=== PATIENT | male | born 1945 | race Hispanic/Latino ===

== ENCOUNTER 2020-02-21 07:15 | Day surgery (SDC) | payer MEDICARE ==
[~2020-02-21 07:15] MED LIST: BUPIVACAINE 0.5% 30 ML VIAL INJ ONE
[2020-02-21] MEDS ORDERED: LISINOPRIL 10 MG TAB PO ONE (08:55)
[2020-02-21] MEDS ORDERED: LISINOPRIL 10 MG TAB ONE (08:56)
[2020-02-21] MEDS ORDERED: CARVEDILOL 3.125 MG TAB ONE (09:03)
[2020-02-21] MEDS ORDERED: cloNIDine HCL 0.1 MG TAB ONE (09:04)
[2020-02-21] MEDS ORDERED: BUPIVACAINE 0.5% 30 ML VIAL INJ ONE (09:18)
--- NOTE | 2020-02-21 10:57 | OP ---
DATE OF PROCEDURE: 02/21/20 PREOPERATIVE DIAGNOSIS: 1. Osteomyelitis, left index finger. POSTOPERATIVE DIAGNOSIS: 1. Osteomyelitis, left index finger. PROCEDURE: 1. Debridement of skin and subcutaneous tissue, dorsum, left index finger at the nailbed. 2. Debridement, excision of distal phalanx on the left index finger. SURGEON: Dhaval Franks MD. ANESTHESIA: Local block and nerve block of the left index finger. PROCEDURE: With 0.5% Marcaine, the nerve block was performed. Once adequate anesthesia was obtained, I debrided the eschar over the nailbed. The nailbed was intact, so we did not remove the nail at this point. The patient was counseled that he could loose the nail if we had chronic non-healing wound, potentially even end up doing a distal amputation. At this point, I made an incision lateral on the finger, went down and identified the bone, dissected around it and with a rongeur, excised the distal bone. It was soft and mushy, consistent with infection. During this manipulation, my lateral incision tore across the base of the nail, it was just no tissue there essentially. Once I completed the excision down to hard bone of proximal phalanx, we irrigated and closed. The tip was now open and we closed the lateral incision and the nail will likely be lost. I have explained this to the patient, but it still is attached to the bed at this point. He tolerated the procedure well. There was no significant bleeding. Bone was sent for culture and pathology. I will see him in the office likely this Wednesday. #[id number] [id number]
[2020-02-21 11:01] VITALS: BP 137/60; TEMP 97.6; O2SAT 96
== END 2020-02-21 10:54 | disposition home or self-care (01) ==
LOC: AMB 07:15
PROVIDERS: ATTEND Surgery
DX: M86.8X4 Other osteomyelitis, hand (principal); M89.742 Major osseous defect, left hand; E11.69 Type 2 diabetes mellitus with other specified complication; I10 Essential (primary) hypertension; N28.9 Disorder of kidney and ureter, unspecified; I51.9 Heart disease, unspecified; Z79.84 Long term (current) use of oral hypoglycemic drugs; Z79.899 Other long term (current) drug therapy